=== PATIENT | male | born 1985 | race Caucasian/White ===

== ENCOUNTER 2017-11-02 21:54 | Emergency (ER) | payer OTHER ==
[~2017-11-02] VITALS: Ht 177.8 cm; Wt 82.1 kg
[~2017-11-02 21:54] MED LIST: NOHOMEMEDS
[2017-11-02 22:25] LABS: HEMATOCRIT 42.9 % (38.0-50.0); HEMOGLOBIN 14.7 G/DL (12.5-16.6); MCH 30.2 PG (29.0-34.0); MCHC 34.3 G/DL (30.0-36.0); MCV 88.3 FL (86-99); PLATELET COUNT 213 K/uL (156-360); RBC DIS.WIDTH-CV 11.9 % (11.8-14.6); RBC DIS.WIDTH-SD 38.4 % (39-53); RED BLOOD COUNT 4.86 M/uL (4.00-5.50); WHITE BLOOD COUNT 14.4 K/uL (4.1-10.2)
[2017-11-02 22:37] LABS: CHLORIDE 106 mEq/L (99-109); POTASSIUM 4.3 mEq/L (3.7-5.4); SODIUM 141 mEq/L (136-147)
[2017-11-02 22:39] LABS: GLUCOSE 117 mg/dL (70-99)
[2017-11-02 22:42] LABS: GFR ESTIMATE (CALCULATED) > 59 mL/min/ (58.99-99999)
[2017-11-02 22:43] LABS: UREA NITROGEN (BUN) 20 mg/dL (9-23)
[2017-11-03] MEDS ORDERED: ZOFRAN4 MG PO (01:24)
[2017-11-03] MEDS ORDERED: VERTICALM25 MG PO (01:24)
[2017-11-03 01:33] VITALS: BP 123/93
== END 2017-11-03 01:34 | disposition home or self-care (01) ==
LOC: EME 21:54
DX: H81.10 Benign paroxysmal vertigo, unspecified ear (principal)
CPT/HCPCS: 71046; 80048; 85027; 93005; 99281; 99285; J2405; J7030